=== PATIENT | male | born 1950 | race Two or more races ===

== ENCOUNTER → 2020-10-26 | Outpatient (CLI) | payer MEDICARE ==
--- NOTE | 2020-10-26 16:49 | KCIC ---
EXAM: 3 Views Right Shoulder DATE: 10/26/2020 11:16 AM INDICATION: Reason: RIGHT SHOULDER PAIN / Spl. Instructions: Right shoulder pain and LROM for yrs. No surgical hx. / History: COMPARISON: No Prior FINDINGS: There is no evidence for acute fracture or dislocation. AC joint is congruent. AC joint DJD. Humeral head is not high riding. Glenohumeral joint degenerative changes are seen with bulky inferior project ing osteophytes, subchondral cystic change and joint space effacement. IMPRESSION: 1. No acute fracture or dislocation. 2. Severe right shoulder joint osteoarthritis with joint space effacement and inferior projecting os teophytes. Electronically signed by: Syd Edwards MD (10/26/2020 4:46 PM) [id number]
--- NOTE | 2020-10-26 19:08 | KCIC ---
Exam: Lumbar spine 2 views INDICATION: Lower back pain and right-sided sciatica TECHNIQUE: Frontal and lateral views of the lumbar spine with spot magnification view of the lumbosac ral junction Comparisons: None FINDINGS: There is a moderate to severe dextroconvex curvature of the lumbar spine measuring approximately 38 d egrees. Diffuse osteopenia. Vertebral body heights are well-maintained. There is grade 1 retrolisthesis of L3 on L4. Diffuse facet arthropathy noted throughout the lumbar spine. There is degenerative disc disease great est at L4-L5 and L5-S1. Visualized soft tissues are unremarkable. 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 Electronically signed by: Joe Alvarez MD (10/26/2020 7:05 PM) PATRIA
== END ==
LOC: KCIC 11:13
PROVIDERS: ATTEND Family Medicine
DX: M25.511 Pain in right shoulder (principal); M54.41 Lumbago with sciatica, right side
CPT/HCPCS: 72100; 73030